=== PATIENT | female | born 1995 | race Caucasian/White ===

== ENCOUNTER → 2021-11-08 14:30 | Outpatient (CLI) | payer BC, SELFPAY ==
[2021-11-08 15:29] LABS: Prolactin 87.8 ng/mL; Thyroid Stim Hormone (TSH) 1.03 uIU/mL (0.358-3.74)
[2021-11-13 23:16] LABS: HPV Reflexed? NOT INDICATED
[2021-11-13 23:19] LABS: 17-Hydroxyprogesterone 43 ng/dL (.)
[2021-11-17 09:08] LABS: Testosterone, % Free 1.48 % (0.50-2.80); Testosterone, Free < 0.04 ng/dL (0.10-0.85); Testosterone, Total < 3 ng/dL (13-71)
== END ==
PROVIDERS: Referring Provider Obstetrics & Gynecology; Visit Provider Obstetrics & Gynecology
DX: Z12.4 Encounter for screening for malignant neoplasm of cervix (principal); N93.9 Abnormal uterine and vaginal bleeding, unspecified
CPT/HCPCS: 36415; 82627; 83498; 84146; 84402; 84403; 84443; 88175; 82626; G0145

== ENCOUNTER → 2021-11-21 14:15 | Outpatient (CLI) | payer BC, SELFPAY ==
--- NOTE | 2021-11-21 14:18 | US_ITS ---
STUDY: ULTRASOUND OF THE FEMALE PELVIS - COMPLETE REASON FOR EXAM: Female, 26 years old. AUB LMP: 11/10/2021. TECHNIQUE: Transabdominal and Transvaginal TECHNICAL QUALITY: Adequate. COMPARISON: None. FINDINGS: The uterus is anteverted and is in a midline position. The uterus measures 11.8 cm x 7.4 cm x 5.3 cm. Normal uterine cervix. The endometrium measures 11.5 mm in thickness, and is hyperechoic. There is no demonstrated endometrial mass. There is no demonstrated myometrial mass. I.U.D. - The patient does not have an I.U.D. The right ovary is visualized. The right ovary measures 3.3 cm x 3.8 cm x 2.9 cm. There is a 2.3 cm x 2.1 cm x 2 cm cyst. There is no visualized right adnexal mass or complex lesion. There is normal arterial and normal venous vascularity. The left ovary is visualized. The left ovary measures 2.2 cm x 1.9 cm x 1.1 cm. There is no left ovarian cyst or ovarian mass. There is no visualized left adnexal mass or complex lesion. There is normal arterial and normal venous vascularity. There is no fluid in the cul-de-sac. The pre void volume of the bladder was 473 ml. US/Transvaginal Non- IMPRESSION: 2.3 cm x 2.1 cm x 2 cm right ovarian cyst. Electronically Signed: Toribio Dubois MD at 15:21 EST , Service support ,
--- NOTE | 2021-11-21 14:18 | US_ITS ---
STUDY: ULTRASOUND OF THE FEMALE PELVIS - COMPLETE REASON FOR EXAM: Female, 26 years old. AUB LMP: 11/10/2021. TECHNIQUE: Transabdominal and Transvaginal TECHNICAL QUALITY: Adequate. COMPARISON: None. FINDINGS: The uterus is anteverted and is in a midline position. The uterus measures 11.8 cm x 7.4 cm x 5.3 cm. Normal uterine cervix. The endometrium measures 11.5 mm in thickness, and is hyperechoic. There is no demonstrated endometrial mass. There is no demonstrated myometrial mass. I.U.D. - The patient does not have an I.U.D. The right ovary is visualized. The right ovary measures 3.3 cm x 3.8 cm x 2.9 cm. There is a 2.3 cm x 2.1 cm x 2 cm cyst. There is no visualized right adnexal mass or complex lesion. There is normal arterial and normal venous vascularity. The left ovary is visualized. The left ovary measures 2.2 cm x 1.9 cm x 1.1 cm. There is no left ovarian cyst or ovarian mass. There is no visualized left adnexal mass or complex lesion. There is normal arterial and normal venous vascularity. There is no fluid in the cul-de-sac. The pre void volume of the bladder was 473 ml. US/Pelvic (Non ) IMPRESSION: 2.3 cm x 2.1 cm x 2 cm right ovarian cyst. Electronically Signed: Toribio Dubois MD at 15:21 EST , Service support ,
== END ==
PROVIDERS: Referring Provider Obstetrics & Gynecology; Visit Provider Obstetrics & Gynecology
DX: N93.9 Abnormal uterine and vaginal bleeding, unspecified (principal)
CPT/HCPCS: 76830; 76856

== ENCOUNTER 2022-01-01 14:29 | Outpatient (CLI) | payer BC, SELFPAY ==
[2022-01-05 16:25] LABS: Testosterone Free 1.3 pg/mL (0.0-4.2)
== END 2022-01-01 23:59 | disposition short-term general hospital (02) ==
LOC: PAVLAB 14:29
PROVIDERS: Referring Provider Obstetrics & Gynecology; Visit Provider Obstetrics & Gynecology
DX: N93.9 Abnormal uterine and vaginal bleeding, unspecified (principal)
CPT/HCPCS: 36415; 84402; 84403